=== PATIENT | male | born 1960 | race Caucasian/White ===

== ENCOUNTER 2023-05-22 09:07 | Emergency (ER) | payer OTHER, SELFPAY ==
[2023-05-22 09:09] VITALS: BP 144/87; PULSE 83; RESP 15; TEMP 36.2; O2SAT 100; BMI 21.4
--- NOTE | 2023-05-22 09:44 | CT_ITS ---
INDICATION: chest/abd pain, eval for aortic dissection EXAMINATION: CTA CHEST, ABDOMEN AND PELVIS WITH CONTRAST - TECHNIQUE: A CTA of the chest, abdomen, and pelvis is obtained with sagittal and coronal reconstructed MIP views. Three-dimensional surface rendered sequence of the thoracic and abdominal aorta was obtained. A radiation dose optimization technique was used for this scan. 100 mL of Isovue-370. Oral contrast: None. RADIATION DOSAGE (If Supplied By Facility): CTDIvol = ( 6.51 ) mGy, DLP = ( 392.22 ) mGycm COMPARISON: No relevant prior comparison study available FINDINGS: CT CHEST: THORACIC AORTA: No atheromatous disease, no aneurysmal changes or dissection. ABDOMINAL AORTA: No aneurysm or dissection. No significant atheromatous disease. The iliac arteries are markedly tortuous without evidence of narrowing. Mild atherosclerotic calcifications at the origin of the celiac axis without significant stenosis. Unremarkable SMA. Mild eccentric calcification at the origin of the left renal artery without significant stenosis. Unremarkable JOHN. LUNGS: Small calcified left upper lobe and right lower lobe granulomata. 6 mm noncalcified nodule in the superior segment of the right lower lobe seen on image 60 series 2. Mild atelectasis or scarring in the lower lungs. No focal consolidation otherwise is seen. No pleural effusions. MEDIASTINUM: The thyroid gland is normal. No mediastinal or hilar adenopathy. HEART: Heart is normal size. No pericardial effusion. No CAD. CT ABDOMEN AND PELVIS: LIVER: 1.8 cm enhancing lesion in the posterior segment of the right lobe of the liver could represent hemangioma. Mild hepatic steatosis. GALLBLADDER: The CBD is normal. Normal gallbladder. SPLEEN: Normal. PANCREAS: No masses or inflammation. ADRENAL GLANDS: Normal. KIDNEYS AND URETERS: The kidneys are within normal limits in size and position. Left extrarenal pelvis. No evidence of hydronephrosis. GI TRACT: The stomach is grossly unremarkable. Normal in caliber small bowel loops. Fecal retention. No evidence of acute diverticulitis. The appendix is not identified. MESENTERY: No mesenteric inflammation. No ascites. IVC: Normal. RETROPERITONEUM: No retroperitoneal lymphadenopathy. PELVIC STRUCTURES: Absent uterus consistent with previous hysterectomy. SOFT TISSUES ABDOMEN: The anterior abdominal wall is normal. SOFT TISSUE CHEST: The extrathoracic soft tissues are normal. BONES: Degenerative changes of the spine. Left hip arthroplasty. CT/CTA Chst, Abd, Pel W and/or WO IMPRESSION: 1. No evidence of aortic dissection or aneurysm. 2. Enhancing liver lesion likely representing hemangioma. Further evaluation with nonemergent multiphase CT scan of the liver is recommended. 3. 6 mm right lower lobe nodule for which follow-up exam in 6 months is recommended. 4. No focal acute inflammatory process. Electronically Signed: Zhao Duffy MD at 11:46 EST ,
--- NOTE | 2023-05-22 09:44 | RAD_ITS ---
INDICATION: chest pain EXAMINATION/TECHNIQUE: X-RAY - XR Chest 1 View COMPARISON: No relevant prior comparison study available FINDINGS: LINES/DEVICES: None. LUNGS: No consolidation, edema or effusion. No pneumothorax. Small granulomas in the right lower lung. MEDIASTINUM AND CARDIOVASCULAR STRUCTURES: Cardiac silhouette not enlarged. Central airways and mediastinal contour are unremarkable. BONES AND SOFT TISSUES: Degenerative changes of the thoracic spine. RAD/Chest 1 View (Portable) IMPRESSION: No radiographic evidence of acute cardiopulmonary disease. Electronically Signed: Zhao Duffy MD at 10:17 EST ,
--- NOTE | 2023-05-22 09:45 | EX.ED.DYSGE1 ---
HPI History of Present Illness Chief Complaint: Hypertension Informant: patient Narrative Narrative: Patient states overnight he had an episode of discomfort in his left chest, going down his left arm, and also radiating down into his abdomen and his lower extremities all the way down to his feet. He says has been having symptoms like this episodically only at nighttime when he is lying down, for several weeks. He has been to the ER every time it happens basically had a lot of negative tests, has not been to this ER. He also followed up with his doctor and had a stress test that was normal. [facility] Medical History (Updated 05/22/23 @ 13:[address] Beck Erickson MD) HTN (hypertension) Home Medications amlodipine 5 mg tablet 5 mg PO DAILY 05/22/23 [History Last Taken Unknown] hydrochlorothiazide 25 mg tablet 25 mg PO DAILY 05/22/23 [History Last Taken Unknown] hyoscyamine sulfate 0.125 mg disintegrating tablet 0.125 mg PO Q6H PRN dyspepsia #20 tabs 05/22/23 [Rx Last Taken Unknown] pantoprazole 40 mg tablet,delayed release 40 mg PO DAILY #30 tabs 05/22/23 [Rx Last Taken Unknown] Allergy/AdvReac Type Severity Reaction Status Date / Time No Known Allergies Allergy Verified 05/22/23 09:14 Social History Smoking Status: Never smoker ROS [facility] ED Constitutional Constitutional ED: Denies chills or fever(s) Eyes Eyes: Denies change in vision or diplopia ENT ENT ED: Denies rhinorrhea or sore throat Cardiovascular Cardiovascular: Reports as per HPI and chest pain; Denies palpitations Respiratory/Chest Respiratory/Chest: Denies cough or dyspnea Gastrointestinal Gastrointestinal: Reports as per HPI and abdominal pain; Denies diarrhea, nausea or vomiting Genitourinary Genitourinary ED: Denies dysuria or hematuria Musculoskeletal Musculoskeletal: Reports as per HPI and extremity pain; Denies back pain or neck pain Integumentary Denies abscess or rash Neurologic Neurologic: Denies headache(s), paresthesias or weakness Psychiatric Psychiatric: Denies anxiety or suicidal thoughts EXAM Physical Exam Const Vital Signs: 05/22/23 09:09 05/22/23 09:51 05/22/23 10:58 Temperature 97.2 F L Temperature Source Temporal Pulse Rate 83 75 Respiratory Rate 15 24 H Respiratory Effort Respiratory Pattern Blood Pressure 144/87 H 130/84 H Blood Pressure Mean 106 99 Pulse Ox 100 100 100 Oxygen Delivery Method Room Air Room Air Room Air 05/22/23 11:01 05/22/23 12:19 Temperature Temperature Source Pulse Rate Respiratory Rate Respiratory Effort Normal Respiratory Pattern Normal Blood Pressure 142/89 H Blood Pressure Mean 106 Pulse Ox Oxygen Delivery Method Positive well nourished and well developed General Appearance ED: well developed and NAD HEENT Reports moist mucous membranes normocephalic and atraumatic Eyes PERRL and EOMs intact bilaterally Neck full ROM and supple Resp normal respiratory effort and clear to auscultation bilaterally Cardio regular rate, regular rhythm and no murmurs GI non-tender and non-distended Auscultation: normoactive bowel sounds Palpation: soft Back/Spine no CVA tenderness General Back: other FROM Extremity normal to inspection General Extremety ED: Negative for edema, pulses abnormal or tenderness General Extremity: Negative for edema or pulses abnormal Neuro oriented x3, CN's II-XII intact bilaterally and no sensory deficits noted Sensorium / Orientation: awake and alert Motor Exam: strength 5/5 throughout Skin no rashes or lesions noted and no wounds MDM MDM MDM Narrative Medical decision making narrative: The symptoms really are not classic for anything; chest discomfort that occasionally radiates into his left shoulder and periscapular area feels stinging, occasionally gives him lower abdominal discomfort but radiates down into his lower extremities, and only seems to occur when he is lying down. The latter part of it makes it sound more like acid reflux, but that should not be radiating into the legs, that is not the place for pain referral. From his description he has never had a CT of the chest and his multiple ER visits but he did have EKGs and blood test that were unremarkable, presumably cardiac workup. I did the same and 2 separate troponin measurements are normal in the single digits, and his EKG is normal. However, my concern would be for a stuttering-symptomatic aortic dissection is the worst case scenario here. I did a CTA of his chest, abdomen, pelvis, it is negative for dissection or other aortic abnormality locally. It does show an incidental lung nodule and what appears to possibly be a hemangioma of the liver. I discussed both of those and the chances for cancer although these lesions do not appear very worrisome for cancer, it is certainly in the differential and follow-up imaging at some point may be indicated according to radiology. For now I think it would be reasonable to put him on pantoprazole daily for a month, and given a prescription for hyoscyamine to use as needed for these episodes to see if that helps, should they recur. Discussed at length, they are comfortable with that plan of following up with her doctor, they do understand that not all problems are able to be diagnosed in the ER. Lab Data Attestation: I reviewed the patient's lab results. Labs: Laboratory Results - last 24 hr 05/22/23 05/22/23 10:00 12:13 WBC 5.7 RBC 5.04 Hgb 14.7 Hct 43.1 MCV 85.5 MCH 29.2 MCHC 34.1 RDW Std Deviation 37.5 RDW Coeff of Daniel 12.0 Plt Count 259 MPV 8.0 Immature Gran % (Auto) 0.200 Neut % (Auto) 66.8 Lymph % (Auto) 22.0 [place] % (Auto) 7.6 Eos % (Auto) 2.5 Baso % (Auto) 0.9 Absolute Neuts (auto) 3.8 Absolute Lymphs (auto) 1.25 Nucleated RBC % 0 Sodium 138 Potassium 3.3 L Chloride 102 Carbon Dioxide 31.0 Anion Gap 5 BUN 23 H Creatinine 1.25 Estim Creat Clear Calc 52.48 Est GFR (MDRD) Af Amer 75 Est GFR (MDRD) Non-Af 62 BUN/Creatinine Ratio 18.4 Glucose 107 H Calcium 9.6 Troponin I High Sens 5 7 Radiography Diagnostic Testing: Clinical Impression(s) from Imaging Studies Chest X-Ray 05/22/23 09:44 IMPRESSION: No radiographic evidence of acute cardiopulmonary disease. Electronically Signed: Zhao Duffy MD at 10:17 EST , Chest/Abdomen/Pelvis CTA 05/22/23 09:44 IMPRESSION: 1. No evidence of aortic dissection or aneurysm. 2. Enhancing liver lesion likely representing hemangioma. Further evaluation with nonemergent multiphase CT scan of the liver is recommended. 3. 6 mm right lower lobe nodule for which follow-up exam in 6 months is recommended. 4. No focal acute inflammatory process. Electronically Signed: Zhao Duffy MD at 11:46 EST , Discharge Plan Triage Chief Complaint: Hypertension ED Provider: Beck Erickson Dx/Rx/DC Orders Clinical Impression: Intermittent chest pain, Intermittent abdominal pain Instructions: ED GERD (Adult), ED Esophageal Spasm Prescriptions: New pantoprazole 40 mg tablet,delayed release (DR/EC) 40 mg PO DAILY Qty: 30 0RF hyoscyamine sulfate 0.125 mg tablet,disintegrating 0.125 mg PO Q6H PRN (Reason: dyspepsia) Qty: 20 0RF No Action amlodipine 5 mg tablet 5 mg PO DAILY Patient Comments: TAKE ONE TABLET BY MOUTH DAILY hydrochlorothiazide 25 mg tablet 25 mg PO DAILY Primary Care Provider: Pamela Vargas NP Referrals: Pamela Vargas NP, [facility] [Primary Care Provider] - As soon as possible Disposition Disposition: Home, Self Care
[2023-05-22 09:51] VITALS: BP 130/84; PULSE 75; RESP 24; O2SAT 100
--- NOTE | 2023-05-22 10:00 | ED.RN ---
NO OLD EKG
[2023-05-22 10:06] LABS: Absolute Lymphocyte Count 1.25 X10^3/uL (0.83-4.51); Absolute Neutrophil Count 3.8 X10^3/uL (2.0-7.7); Basophil# 0.05 X10^3/uL; Basophil% 0.9 % (0-1); Eosinophil# 0.14 X10^3/uL; Eosinophils% 2.5 % (0-5); Hematocrit 43.1 % (40-54); Hemoglobin 14.7 g/dL (13.0-16.5); Lymphocyte # 1.25 X10^3/ul (0.83-4.51); Mean Corp Hgb Conc 34.1 g/dL (32-36); Mean Corpuscular Hgb 29.2 pg (27.0-32.0); Mean Corpuscular Volume 85.5 fL (80-94); Monocyte# 0.43 X10^3/uL; Monocyte% 7.6 % (0-10); NRBC Flagged by Analyzer 0 % (0-5); Neutrophil # 3.81 X10^3/uL (2.7-7.7); Neutrophil % 66.8 % (47-70); Platelet Count 259 K/mm3 (150-450); RBC Distribution Width SD 37.5 fl (35.1-43.9); Red Blood Count 5.04 M/mm3 (4.6-6.2); White Blood Count 5.7 K/mm3 (4.4-11.0)
[2023-05-22 10:34] LABS: Anion Gap 5 (5-15); BUN 23 mg/dL (7-18); BUN/Creat Ratio 18.4 RATIO (10-20); Calcium,Total 9.6 mg/dL (8.5-10.1); Chloride 102 mmol/L (98-107); Creatinine, Serum 1.25 mg/dL (0.70-1.30); EST Glomerular Filtration Rate 62 mL/min (>60); Est Glom Filt Rate - Afr Amer 75 mL/min (>60); Estimated Creatinine Clearance 52.48 ml/min; Glucose 107 mg/dL (74-106); Potassium 3.3 mmol/L (3.5-5.1); Sodium Level 138 mmol/L (136-145); Troponin-I HS (w/2H Reflex) 5 pg/mL (3.0-78.0)
[2023-05-22 10:58] VITALS: O2SAT 100
[2023-05-22 12:01] LABS: Reflex Troponin-HS? (from REC) Y
[2023-05-22 12:19] VITALS: BP 142/89
[2023-05-22 12:39] LABS: Troponin-I HS 7 pg/mL (3.0-78.0)
[2023-05-22 13:34] VITALS: BP 141/85; PULSE 76; RESP 14; O2SAT 98
[2023-05-22] MEDS: Pantoprazole Sodium 40 MG Tablet PO (13:38)
== END 2023-05-22 13:38 | disposition home or self-care (01) ==
PROVIDERS: Emergency Provider Emergency Medicine; PCP Nurse Practitioner Family; Visit Provider Emergency Medicine
DX: R07.9 Chest pain, unspecified (principal); R10.30 Lower abdominal pain, unspecified; I10 Essential (primary) hypertension; Z79.899 Other long term (current) drug therapy
CPT/HCPCS: 71045; 71275; 74174; 80048; 84484; 85025; 93005; 99284; Q9967; A4216